=== PATIENT | male | born 1980 | race Caucasian/White ===

== ENCOUNTER 2020-12-28 15:20 | Emergency (ER) | payer OTHER, SELFPAY ==
[2020-12-28 15:34] VITALS: BP 136/90; PULSE 88; RESP 18; TEMP 36.1; O2SAT 97; BMI 21.5
[2020-12-28 17:16] LABS: MANUAL DIFF FLAG NO
[2020-12-28 17:23] LABS: Basophils Absolute Auto 0.1 X10*3/uL (0.0-0.2); Basophils Percent Auto 0.5 % (0-2); Eosinophils Percent Auto 0.4 % (0-4); Hematocrit 39.6 % (42-52); Hemoglobin 13.6 g/dl (14.0-18.0); Imm Gran Abs Auto 0.05 X10*3/uL (0.00-0.03); Imm Gran Pct Auto 0.5 % (0.0-0.4); Lymphocytes Absolute Auto 1.8 X10*3/uL (1.2-4.9); Lymphocytes Percent Auto 16.9 % (20-40); Mean Corpuscular HGB Conc 34.3 g/dl (31.0-36.0); Mean Corpuscular Hemoglobin 31.1 pg (27.0-33.0); Mean Corpuscular Volume 90.6 fL (80-98); Mean Platelet Volume 10.2 fL (9.4-12.4); Monocytes Absolute Auto 0.9 X10*3/uL (0.1-1.2); Monocytes Percent Auto 8.3 % (2-11); Neutrophils Absolute Auto 7.7 X10*3/uL (2.0-8.3); Neutrophils Percent Auto 73.4 % (45-73); Platelet Count 230 X10*3/uL (160-400); Red Blood Count 4.37 X10*6/uL (4.60-5.80); Red Cell Distribution Width 12.1 % (11.0-16.0); White Blood Count 10.5 X10*3/uL (4.8-10.8)
[2020-12-28 17:45] LABS: Anion Gap 15 (12-20); Blood Urea Nitrogen 6 mg/dL (9-16); Calcium 8.8 mg/dL (8.4-10.2); Carbon Dioxide 27 mmol/L (22-29); Chloride 103 mmol/L (96-108); Creatinine Clr Calc Pharmacy 112.7; Estimated Glomerular Filt Rate > 60; Glucose Random 90 mg/dL (60-115); Potassium 3.7 mmol/L (3.3-5.1); Sodium 141 mmol/L (135-145)
[2020-12-28] MEDS: Lidocaine HCl 2 % MPF 5 ML VIAL INFILTRATI (20:25)
[2020-12-28 21:03] VITALS: BP 128/68; PULSE 68; RESP 16; TEMP 36.6; O2SAT 98
[2020-12-28] MEDS: Ibuprofen 600 MG TABLET PO (21:03)
--- NOTE | 2020-12-28 21:23 | PC.NURSE ---
WOUND WAS DRAINED AND PACKED BY . PT INSTRUCTED TO REMOVE PACKING IN 2 DAYS, BY .
== END 2020-12-28 21:24 | disposition home or self-care (01) ==
PROVIDERS: Emergency Provider Internal Medicine
DX: L02.11 Cutaneous abscess of neck (principal); M54.2 Cervicalgia
CPT/HCPCS: 10060; 36415; 80048; 85025; 99283

== ENCOUNTER 2022-02-13 15:03 | Emergency (ER) | payer OTHER, SELFPAY ==
[2022-02-13 15:07] VITALS: BP 155/101; PULSE 98; RESP 16; TEMP 36.8; O2SAT 97; BMI 19.3
--- NOTE | 2022-02-13 15:18 | ED.SKABFB ---
HPI - Skin/Abscess/Foreign Bdy General Chief complaint: Skin/Abscess/Foreign Body Stated complaint: abscess Time Seen by Provider: 02/13/22 15:18 Source: patient Mode of arrival: ambulatory Limitations: no limitations History of Present Illness HPI narrative: Patient is a 41 year old male presenting to the emergency department today with a left facial abscess. Patient states that it has been this big for a few days and he has had a previous abscess in the same place. Patient denies any dental pain or IVDA. Patient denies any dizziness, lightheadedness, abdominal pain, nausea, vomiting, fever, chills, blurry vision, double vision, loss of vision, chest pain, difficulty breathing, shortness of breath, back pain, night sweats, pain with urination, increased urinary frequency, increased urinary urgency, blood in his urine or stool, syncope or a near syncopal episode, recent trauma or falls, bowel incontinence, bladder incontinence, bowel retention, bladder retention, or any other complaints at this time. MD complaint: abscess/boil Onset (ago): day(s) Tetanus up to date: yes Location: face Severity: mild Severity scale (1-10): 3 Quality: dull Pain Consistency: constant Relieving factors: none Exacerbating factors: none Context: none Associated symptoms: denies other symptoms Treatments prior to arrival: none Related Data Previous Rx's Medication Instructions Recorded clindamycin HCl 300 mg capsule 300 mg PO Q6H #40 cap 12/28/20 ibuprofen 600 mg tablet 600 mg PO Q6H PRN #20 tab 12/28/20 cephalexin 500 mg capsule 500 mg PO Q6H 7 Days #28 cap 02/13/22 doxycycline hyclate 150 mg tablet 150 mg PO BID 7 Days #14 tab 02/13/22 Allergies Allergy/AdvReac Type Severity Reaction Status Date / Time No Known Allergies Allergy Unverified 07/24/20 17:58 Review of Systems Constitutional: Constitutional: Reports no additional constitutional complaints, Denies chills, Denies fever(s) and Denies night sweats Eyes: Eyes: Reports no additional eye complaints, Denies blurry vision, Denies change in vision, Denies diplopia, Denies eye discharge, Denies loss of vision and Denies eye pain ENT: Denies dizziness Cardiovascular: Cardiovascular: Reports no additional cardiovascular complaints, Denies chest pain, Denies lightheadedness, Denies Loss of Consciousness and Denies dyspnea Respiratory: Respiratory: Reports no additional respiratory complaints and Denies dyspnea Gastrointestinal: Gastrointestinal: Reports no additional gastrointestinal complaints, Denies abdominal pain, Denies melena, Denies hematochezia, Denies change in bowel habits and Denies change in stool character Genitourinary: Genitourinary: Reports no additional male genitourinary complaints, Denies hematuria, Denies oliguria, Denies difficulty urinating, Denies dysuria, Denies urinary frequency, Denies urinary hesitancy, Denies urinary incontinence and Denies urinary urgency Musculoskeletal: Musculoskeletal: Reports no additional musculoskeletal complaints, Denies numbness and Denies tingling Integumentary/Breasts: Comments: abscess to the left jaw Neurologic: Denies dizziness, Denies loss of vision, Denies numbness and Denies tingling Psychiatric: Psychiatric: Reports no additional psychiatric complaints Endocrine: Endocrine: Reports no additional endocrine complaints Hematologic/Lymphatic: Hematologic/Lymphatic: Reports no additional hematologic/lymphatic complaints Allergic/Immunologic: Allergic/Immunologic: Reports no additional allergic/immunologic complaints PMFSH Past Medical History Attestation statement: The following information was validated with the patient. Source: old records reviewed Social History Social History Advance Directives: No Advance Directives Information Provided: No Physical Exam Vital Signs: Vital Signs: Last Vital Signs Temp 98.2 F 02/13/22 15:07 Pulse 98 02/13/22 15:07 Resp 16 02/13/22 15:07 BP 155/101 H 02/13/22 15:07 Pulse Ox 97 02/13/22 15:07 BMI result Body Mass Index 19.3 Const: General: cooperative, no acute distress, alert and awake Nutritional Appearance: well nourished Orientation/consciousness: patient oriented x3 Limitations: no limitations HEENT: Head: Yes normal to inspection and Yes atraumatic Ears: hearing grossly normal bilaterally and external ears normal General nose exam: Normal external nose present, no nasal discharge noted and no epistaxis Face and sinus: Yes normal facial exam, No abrasion and No laceration Mouth: Normal oral and palatal mucosa present, no drooling and no muffled voice Eyes: General: appearance normal, both eyes and all related structures Periorbital: periorbital findings normal Eyelids: Yes eyelids normal Conjunctivae: conjunctivae normal Pupils: Equal, round and reactive pupils present EOM: EOMs intact bilaterally Neck: Neck: Yes normal visual inspection, Yes full ROM and Yes no lymphadenopathy Chest: Chest palpation & inspection: normal inspection of the chest Resp: Effort & Inspection: normal respiratory effort and able to speak in complete sentences Auscultation: clear to auscultation bilaterally Cardio: Rate: regular rate Rhythm: regular rhythm GI: Inspection: Yes normal to inspection Skin: Other: left sided jaw redness and swelling consistent with an abscess Neuro: General: patient oriented x3 and moves all extremities Cranial nerves: Yes Equal, round and reactive pupils present Cognition (Neuro): normal cognition Motor exam (neuro): 5/5 motor strength present throughout Sensory Exam: Normal double simultaneous stimulation for sensation Coordination: [id number] test normal Extrem: General: Yes normal to inspection, Yes full ROM and Yes capillary refill normal Psych: Appearance: grossly normal Mental Status: mental status grossly normal Affect: normal affect Attitude: cooperative Thought process: Normal thought process present Thought content: Normal thought content present Insight: Good insight present (Psych) MDM - Skin/Abscess/Foreign Bdy MDM Narrative Medical decision making narrative: Patient is a 41 year old male presenting to the emergency department today with a left jaw abscess. Patient's physical exam showed a small erythematous and swollen area to the left side of the patient's jaw. I explained my physical exam findings to the patient. I answered all questions asked by the patient. I performed an incision and drainage on the abscessed area that resulted in blood/purulent discharge. I stressed the importance of the patient taking his medication as prescribed. I stressed the importance of the patient following up with his primary care provider. I stressed the importance of the patient returning to the emergency department immediately if his symptoms were to worsen or if he were to develop any dizziness, shortness of breath, difficulty breathing, chest pain, blurry vision, loss of vision, nausea, vomiting, abdominal pain, fever, chills, back pain, or any other complaints. Patient verbalized agreement and understanding with this treatment plan and discharge. Differential Diagnosis Differential diagnosis: Likely abscess of skin or subcutaneous tissue Medical Records Attestation: I reviewed the patient's medical records. Procedures Abscess I/D Site: face Side (if applicable): left Sedation/analgesia: none Local Anesthetic: lidocaine 1% Amount of anesthesia used (mL): 3 Technique: incised with blade Amount of fluid expressed (mL): 10 Sent for culture/gram staining?: No Irrigation: No Packing used?: none Discharge Plan Discharge Clinical Impression: Cellulitis, Abscess Patient Disposition: Home, Self-Care Instructions: Abscess (ED), Abscess Incision and Drainage (DC) Additional Instructions: Apply warm compresses to the area. Take your antibiotics as prescribed. Follow up with your primary care provider. Return to the emergency department immediately if your symptoms worsen or if you develop any dizziness, shortness of breath, difficulty breathing, chest pain, blurry vision, loss of vision, nausea, vomiting, abdominal pain, fever, chills, back pain, or any other complaints. Prescriptions: New cephalexin 500 mg capsule 500 mg PO Q6H 7 Days Qty: 28 0RF doxycycline hyclate 150 mg tablet 150 mg PO BID 7 Days Qty: 14 0RF No Action clindamycin HCl 300 mg capsule 300 mg PO Q6H Qty: 40 0RF ibuprofen 600 mg tablet 600 mg PO Q6H PRN (Reason: pain) Qty: 20 0RF Referrals: Physician,Unknown J [Primary Care Provider] - (Follow up with your PCP. ) Stand Alone Forms: Work/School Release Interventions: ED Discharge Assessment Last Done: 02/13/22 16:30 Discharge Date/Time: 02/13/22 16:32 Print Language: Azerbaijani
== END 2022-02-13 16:32 | disposition home or self-care (01) ==
PROVIDERS: Emergency Provider Emergency Medicine
DX: L02.01 Cutaneous abscess of face (principal); L03.211 Cellulitis of face
CPT/HCPCS: 10060; 99283; 99284

== ENCOUNTER 2023-10-09 20:30 | Emergency (ER) | payer OTHER, SELFPAY ==
--- NOTE | ~2023-10-09 | CT_ITS ---
EXAMINATION: CT HEAD WITHOUT CONTRAST CT CERVICAL SPINE WITHOUT CONTRAST CLINICAL INFORMATION: Fall. COMPARISON: None TECHNIQUE: Contiguous axial imaging was performed from the skull base to vertex without intravenous administration of contrast. Contiguous axial imaging was performed from the upper chest through the skull base without intravenous administration of contrast. Coronal and sagittal reformats were obtained at the acquisition workstation. This CT examination was performed using dose optimization techniques as appropriate, variously including the following: *Automated exposure control *Adjustment of mA and/or kV according to patient size (this includes techniques or standardized protocols for targeted exams where dose is matched to indication/reason for exam; i.e. extremities or head) *Use of iterative reconstruction technique DLP: 714 and 370 mGy-cm FINDINGS: Head: Right posterior high parietal subdural collection measuring up to 0.8 cm in thickness. No evidence of edematous territorial infarction. Castrejon-white matter differentiation is preserved. The ventricles are normal in size and configuration. No evidence for obstructive hydrocephalus. No abnormal mass effect or midline shift. No acute soft tissue or osseous abnormalities. The mastoid air cells and paranasal sinuses are clear. Cervical Spine: The atlantooccipital and atlantoaxial articulations remain well aligned. No evidence of acute fracture or subluxation. Mild multilevel cervical spondylosis. Disc bulging at C3-C4. There is no prevertebral soft tissue swelling. Pockets of air to the right and posterior trachea (12:300) favoring to represent tracheal diverticuli. The thyroid gland and remaining cervical soft tissues are normal in appearance. The lung apices demonstrate mild pleural-based scarring. CT/CT cervical spine wo IV con IMPRESSION: 1. Acute right posterior high parietal subdural collection measuring up to 0.8 cm in thickness. 2. No evidence of acute cervical spinal fracture or traumatic subluxation. 3. Disc bulge at C3-C4. This critical result was discussed with Raúl Castillo MD at 10/10/2023 12:44 AM and it was ascertained that the content and urgency of the report was understood at the time of direct communication.
--- NOTE | ~2023-10-09 | XR_ITS ---
EXAMINATION: XR RIBS, RIGHT CLINICAL INFORMATION: Status post fall COMPARISON: None available. TECHNIQUE: 3 views of the right ribs were obtained. FINDINGS: There are slight contour deformities of the posterolateral right ninth and 10th ribs, more suggestive of healed old fractures. No definite acute fracture is seen. Lungs are symmetrically expanded and clear. No evidence of pneumothorax, pleural effusion, or pulmonary edema. The cardiomediastinal contour is unremarkable. XR/XR ribs RT min 3V w CXR1V IMPRESSION: Slight contour deformities of the posterolateral right ninth and 10th ribs, more suggestive of healed old fractures. No definite acute fracture identified.
[2023-10-09 20:53] VITALS: BP 144/90; PULSE 71; O2SAT 98; BMI 18.3
--- NOTE | 2023-10-09 21:07 | ED.FALL ---
HPI - Fall General Chief Complaint: Fall Stated Complaint: unwit fall down stairs, etoh Time Seen by Provider: 10/09/23 21:04 Source: patient Mode of arrival: EMS Limitations: no limitations History of Present Illness HPI Narrative: Patient apparently fell while going downstairs unknown number of steps patient intoxicated and not cooperative no significant signs of injury noticed no seizures per EMS patient was able to stand up and ambulatory Related Data Previous Rx's Medication Instructions Recorded clindamycin HCl 300 mg capsule 300 mg PO Q6H #40 caps 12/28/20 ibuprofen 600 mg tablet 600 mg PO Q6H PRN pain #20 tabs 12/28/20 cephalexin 500 mg capsule 500 mg PO Q6H 7 days #28 caps 02/13/22 doxycycline hyclate 150 mg tablet 150 mg PO BID 7 days #14 tabs 02/13/22 Allergies Allergy/AdvReac Type Severity Reaction Status Date / Time No Known Allergies Allergy Unverified 07/24/20 17:58 Review of Systems Review of Systems: Yes all other systems are reviewed and are negative [facility] Past Medical History Medical History (Updated 10/10/23 @ 01:58 by Raúl Castillo MD) TBI (traumatic brain injury) Social History Social History Alcohol intake: current Alcohol intake frequency: 0-2 drinks per day Alcohol type: beer and hard liquor Smoked in Last 30 Days: Yes Use of substances other than those prescribed or required for medical reasons: Refusing to respond Advance Directives: No Advance Directives Information Provided: No Physical Exam Vital Signs: Vital Signs: Last Vital Signs Temp 98.8 F 10/09/23 22:04 Pulse 61 10/09/23 22:04 Resp 16 10/09/23 22:04 Pulse Ox 96 10/09/23 22:04 O2 Del Method Room Air 10/09/23 22:04 BMI result Body Mass Index 18.3 Appearance: Sleeping in the ER No acute distress. Intoxicated Eyes: PERRLA, No Nystagmus HEENT: Pharynx normal. Oral Mucosa moist atraumatic normocephalic tympanic membrane Normal Neck: Normal inspection. Neck supple. No midline tenderness CVS: Normal heart rate and rhythm. Pulses normal. Respiratory: No respiratory distress. Equal air entry bilateral, no wheezing/rales/rhonchi tenderness right upper ribs and mid axillary area Abdomen: Soft and nontender. Bowel sounds are present, no mass palpable, no CVA tenderness Skin: Skin warm and dry. Normal skin color. Normal skin turgor. Extremities: No lower extremity edema. No calf tenderness Neuro: Sleeping but easily arousable No motor deficit. No sensory deficit.No cerebellar signs , cranial nerves II-XII intact Medications Administered Discontinued Medications Generic Name Dose Route Start Last Admin Trade Name Alexandre PRN Reason Stop Dose Admin Morphine Sulfate 4 mg 10/10/23 01:02 10/10/23 01:47 Morphine Sulfate 4 Mg/Ml Cartridge IVPUSH 10/10/23 01:03 4 mg ONCE ONE Administration Protocol Ondansetron HCl 4 mg 10/10/23 01:02 10/10/23 01:46 Ondansetron Hcl 4 Mg/2 Ml Vial IVPUSH 10/10/23 01:03 4 mg ONCE ONE Administration Medical Decision Making Medical Decision Making [facility] Narrative: Patient's sister came to the ER and told us that patient apparently fell about 10 steps intoxicated friend saw him falling and patient hit his right side of the head on the ground very hard no loss of consciousness although patient complaining of pain in the right ribs no seizure activity no shortness of breath patient not on any anticoagulation not on aspirin, patient GCS 15 ambulatory in the ED will call [facility] for transfer 150: CDW with Dr. Coats at [facility] Trauma Surgeon accept the patient for transfer to the ED Differential Diagnosis Differential Diagnoses: The differential diagnosis associated with the presentation includes SDH/ICH/rib fracture Admission/Observation Consideration of admission/observation: Escalation of care including admission/observation considered Lab Data [facility] Lab Attestation statement: I reviewed the patient's lab results. 10/10/23 01:16 10/10/23 01:16 Labs: Lab Results 10/10/23 Range/Units 01:16 WBC 9.3 (4.8-10.8) X10*3/uL RBC 4.95 (4.60-5.80) X10*6/uL Hgb 14.9 (14.0-18.0) g/dl Hct 44.9 (42.0-52.0) % MCV 90.7 (80.0-98.0) fL MCH 30.1 (27.0-33.0) pg MCHC 33.2 (31.0-36.0) g/dl RDW 12.2 (11.0-16.0) % Plt Count 198 (160-400) X10*3/uL MPV 10.2 (9.4-12.4) fL Immature Gran % (Auto) 0.2 (0.0-0.4) % Neut % (Auto) 63.1 (45-73) % Lymph % (Auto) 26.9 (20-40) % O'Brien % (Auto) 7.9 (2-11) % Eos % (Auto) 1.4 (0-4) % Baso % (Auto) 0.5 (0-2) % Lymph # (Auto) 2.5 (1.2-4.9) X10*3/uL O'Brien # (Auto) 0.7 (0.1-1.2) X10*3/uL Eos # (Auto) 0.1 (0.0-0.4) X10*3/uL Baso # (Auto) 0.1 (0.0-0.2) X10*3/uL Abs Immat Gran (auto) 0.02 (0.00-0.03) X10*3/uL Absolute Neuts (auto) 5.9 (2.0-8.3) x10*3/uL Absolute Nucleated RBC 0.000 (0.0-0.012) X10*3/uL Nucleated RBC % (auto) 0.0 (0.0-0.2) /100WBC PT 11.4 (11.1-13.3) SEC INR 0.9 (0.9-1.1) APTT 28.4 (26.0-36.4) SEC Sodium 145 (135-145) mmol/L Potassium 4.0 (3.3-5.1) mmol/L Chloride 108 (96-108) mmol/L Carbon Dioxide 27 (22-29) mmol/L Anion Gap 14 (12-20) BUN 10 (9-16) mg/dL Creatinine 0.90 (0.5-1.4) mg/dL Estim Creat Clear Calc 90.7 Estimated GFR > 60 Random Glucose 98 (60-115) mg/dL Calcium 9.0 (8.4-10.2) mg/dL Magnesium 2.1 (1.6-2.6) mg/dL Total Bilirubin 0.4 (0.0-1.0) mg/dL AST 69 H (5-37) U/L ALT 39 (0-40) U/L Alkaline Phosphatase 69 (39-117) U/L Total Protein 8.3 H (6.5-8.0) g/dL Albumin 4.6 (3.5-5.0) g/dL Ethyl Alcohol 230 mg/dL Independent Interpretation I performed an independent interpretation of an: Plain X-Ray and CT Scan Interpretation: Negative for rib fracture Radiology Impression Discussion of test interpretation with radiology: I have reviewed the radiologist's reading. Radiologist Impression: [address] [address] [address] Scan Report Signed Patient: Cristino Reyes MR#: [id number] : 1980 Acct:[id number] Age/Sex: 43 / M ADM Date: 10/09/23 Loc: .ED Attending Dr: Ordering Physician: Raúl Castillo MD Date of Service: 10/09/23 Procedure(s): CT head/brain wo IV con Accession Number(s): [id number] cc: Physician,Unknown ; Raúl Castillo MD~ EXAMINATION: CT HEAD WITHOUT CONTRAST CT CERVICAL SPINE WITHOUT CONTRAST CLINICAL INFORMATION: Fall. COMPARISON: None TECHNIQUE: Contiguous axial imaging was performed from the skull base to vertex without intravenous administration of contrast. Contiguous axial imaging was performed from the upper chest through the skull base without intravenous administration of contrast. Coronal and sagittal reformats were obtained at the acquisition workstation. This CT examination was performed using dose optimization techniques as appropriate, variously including the following: *Automated exposure control *Adjustment of mA and/or kV according to patient size (this includes techniques or standardized protocols for targeted exams where dose is matched to indication/reason for exam; i.e. extremities or head) *Use of iterative reconstruction technique DLP: 714 and 370 mGy-cm FINDINGS: Head: Right posterior high parietal subdural collection measuring up to 0.8 cm in thickness. No evidence of edematous territorial infarction. Castrejon-white matter differentiation is preserved. The ventricles are normal in size and configuration. No evidence for obstructive hydrocephalus. No abnormal mass effect or midline shift. No acute soft tissue or osseous abnormalities. The mastoid air cells and paranasal sinuses are clear. Cervical Spine: The atlantooccipital and atlantoaxial articulations remain well aligned. No evidence of acute fracture or subluxation. Mild multilevel cervical spondylosis. Disc bulging at C3-C4. There is no prevertebral soft tissue swelling. Pockets of air to the right and posterior trachea (12:300) favoring to represent tracheal diverticuli. The thyroid gland and remaining cervical soft tissues are normal in appearance. The lung apices demonstrate mild pleural-based scarring. CT/CT head/brain wo IV con IMPRESSION: 1. Acute right posterior high parietal subdural collection measuring up to 0.8 cm in thickness. 2. No evidence of acute cervical spinal fracture or traumatic subluxation. 3. Disc bulge at C3-C4. [address] [address] XRay Report Signed Patient: Cristino Reyes MR#: [id number] : 1980 Acct:[id number] Age/Sex: 43 / M ADM Date: 10/09/23 Loc: HO.ED Attending Dr: Ordering Physician: Raúl Castillo MD Date of Service: 10/10/23 Procedure(s): XR ribs RT min 3V w CXR1V Accession Number(s): [id number] cc: Physician,Unknown ; Raúl Castillo MD~ EXAMINATION: XR RIBS, RIGHT CLINICAL INFORMATION: Status post fall COMPARISON: None available. TECHNIQUE: 3 views of the right ribs were obtained. FINDINGS: There are slight contour deformities of the posterolateral right ninth and 10th ribs, more suggestive of healed old fractures. No definite acute fracture is seen. Lungs are symmetrically expanded and clear. No evidence of pneumothorax, pleural effusion, or pulmonary edema. The cardiomediastinal contour is unremarkable. XR/XR ribs RT min 3V w CXR1V IMPRESSION: Slight contour deformities of the posterolateral right ninth and 10th ribs, more suggestive of healed old fractures. No definite acute fracture identified. Critical Care Time Critical Care Time Critical Care Time: Yes Total Critical Care Time: 55 Attestation: The patient was critically ill with a high probability of imminent or life threatening deterioration. I spent greater than 60 minutes of discontinuous time evaluating the patient,delivering critical care at the bedside, discussing and evaluating pertinent data with consultants. Critical care time does not include time spent performing separately billable procedures or teaching. Total time spent performing critical care was 55 minutes. Discharge Plan Discharge Clinical Impression: Acute subdural hematoma, Fall (on) (from) other stairs and steps, initial encounter, Alcohol intoxication Patient Disposition: [facility] Transfer Details: Be [facility] ER as a trauma transfer Dr Coats Prescriptions: No Action clindamycin HCl 300 mg capsule 300 mg PO Q6H Qty: 40 0RF ibuprofen 600 mg tablet 600 mg PO Q6H PRN (Reason: pain) Qty: 20 0RF cephalexin 500 mg capsule 500 mg PO Q6H 7 Days Qty: 28 0RF doxycycline hyclate 150 mg tablet 150 mg PO BID 7 Days Qty: 14 0RF
[2023-10-09 21:46] VITALS: RESP 16
[2023-10-09 22:04] VITALS: PULSE 61; RESP 16; TEMP 37.1; O2SAT 96
--- NOTE | 2023-10-09 22:06 | PC.NURSE ---
patient refusing BP but willing to keep pulse ox on finger. Pt now sleeping, respirations even and unlabored, skin pwd. awaiting CT scan
--- NOTE | 2023-10-09 22:30 | PC.NURSE ---
sister called to inform this RN that patient has multiple head injuries in the past and has a long standing hx of ETOH abuse
--- NOTE | 2023-10-10 | PC.NURSE ---
On pt reassessment, pt demonstrating steady gait, ambulated to bathroom without distress. On return, pt endorsing R rib pain on R lateral side, CXR ordered. LSCTA, able to carry conversation, calm and cooperative with staff.
[2023-10-10 01:21] LABS: MANUAL DIFF FLAG NO
[2023-10-10 01:24] LABS: Basophils Absolute Auto 0.1 X10*3/uL (0.0-0.2); Basophils Percent Auto 0.5 % (0-2); Eosinophils Absolute Auto 0.1 X10*3/uL (0.0-0.4); Eosinophils Percent Auto 1.4 % (0-4); Hematocrit 44.9 % (42.0-52.0); Hemoglobin 14.9 g/dl (14.0-18.0); Imm Gran Abs Auto 0.02 X10*3/uL (0.00-0.03); Imm Gran Pct Auto 0.2 % (0.0-0.4); Lymphocytes Absolute Auto 2.5 X10*3/uL (1.2-4.9); Lymphocytes Percent Auto 26.9 % (20-40); Mean Corpuscular HGB Conc 33.2 g/dl (31.0-36.0); Mean Corpuscular Hemoglobin 30.1 pg (27.0-33.0); Mean Corpuscular Volume 90.7 fL (80.0-98.0); Mean Platelet Volume 10.2 fL (9.4-12.4); Monocytes Absolute Auto 0.7 X10*3/uL (0.1-1.2); Monocytes Percent Auto 7.9 % (2-11); Neutrophils Absolute Auto 5.9 x10*3/uL (2.0-8.3); Neutrophils Percent Auto 63.1 % (45-73); Platelet Count 198 X10*3/uL (160-400); Red Blood Count 4.95 X10*6/uL (4.60-5.80); Red Cell Distribution Width 12.2 % (11.0-16.0); White Blood Count 9.3 X10*3/uL (4.8-10.8)
[2023-10-10 01:27] LABS: INTERNATIONAL NORM RATIO 0.9 (0.9-1.1); Prothrombin Time 11.4 SEC (11.1-13.3)
[2023-10-10 01:30] LABS: Partial Thromboplastin Time 28.4 SEC (26.0-36.4)
[2023-10-10 01:38] LABS: Alanine Aminotransferase 39 U/L (0-40); Albumin Level 4.6 g/dL (3.5-5.0); Alkaline Phosphatase 69 U/L (39-117); Anion Gap 14 (12-20); Aspartate Amino Transferase 69 U/L (5-37); Bilirubin Total 0.4 mg/dL (0.0-1.0); Blood Urea Nitrogen 10 mg/dL (9-16); Carbon Dioxide 27 mmol/L (22-29); Chloride 108 mmol/L (96-108); Creatinine Clr Calc Pharmacy 90.7; Estimated Glomerular Filt Rate > 60; Ethanol 230 mg/dL; Glucose Random 98 mg/dL (60-115); Magnesium 2.1 mg/dL (1.6-2.6); Sodium 145 mmol/L (135-145); Total Protein 8.3 g/dL (6.5-8.0)
[2023-10-10] MEDS: ondansetron HCL 4 MG/2 ML VIAL IVPUSH (01:46)
[2023-10-10] MEDS: Morphine Sulfate 4 MG/ML CARTRIDGE IVPUSH (01:47)
[2023-10-10 02:24] VITALS: BP 101/65; PULSE 65; RESP 16; O2SAT 97
--- NOTE | 2023-10-10 02:50 | MHC.EDTECH ---
CALL OUT TO [facility] AT 0203 TO BOOK TRANSPORT FOR PT TO [facility] ED, ESTIMATED ETA GIVEN WAS [id number]
== END 2023-10-10 02:48 | disposition short-term general hospital (02) ==
PROVIDERS: Emergency Provider Internal Medicine
DX: S06.5XAA Traumatic subdural hemorrhage with loss of consciousness status unknown, initial encounter (principal); W10.9XXA Fall (on) (from) unspecified stairs and steps, initial encounter; Y93.9 Activity, unspecified; Y92.9 Unspecified place or not applicable; Y99.9 Unspecified external cause status; F10.129 Alcohol abuse with intoxication, unspecified; R07.81 Pleurodynia; Y90.7 Blood alcohol level of 200-239 mg/100 ml
CPT/HCPCS: 36415; 70450; 71101; 72125; 80053; 80307; 83735; 85025; 85610; 85730; 96374; 96375; 99285; J2270; J2405

== ENCOUNTER 2024-04-02 22:03 | Emergency (ER) | payer BC, SELFPAY ==
[2024-04-02 22:22] VITALS: BP 116/89; PULSE 82; RESP 17; TEMP 36.5; O2SAT 97; BMI 20.7
[2024-04-02 22:44] LABS: MANUAL DIFF FLAG NO
[2024-04-02 22:59] LABS: Acetaminophen LAB < 3 mcg/mL (<30); Alanine Aminotransferase 24 U/L (0-40); Albumin Level 4.6 g/dL (3.5-5.0); Alkaline Phosphatase 120 U/L (39-117); Anion Gap 16 (12-20); Aspartate Amino Transferase 49 U/L (5-37); Bilirubin Total 0.4 mg/dL (0.0-1.0); Blood Urea Nitrogen 7 mg/dL (9-16); Calcium 8.9 mg/dL (8.4-10.2); Carbon Dioxide 26 mmol/L (22-29); Chloride 103 mmol/L (96-108); Creatinine Clr Calc Pharmacy 101.5; Estimated Glomerular Filt Rate > 60; Ethanol 326 mg/dL; Glucose Random 116 mg/dL (60-115); Potassium 3.4 mmol/L (3.3-5.1); Salicylate < 5.0 mg/dL (15-30); Sodium 142 mmol/L (135-145); Total Protein 8.4 g/dL (6.5-8.0)
[2024-04-02 23:00] LABS: Basophils Absolute Auto 0.1 X10*3/uL (0.0-0.2); Basophils Percent Auto 0.6 % (0-2); Eosinophils Absolute Auto 0.1 X10*3/uL (0.0-0.4); Eosinophils Percent Auto 0.7 % (0-4); Hematocrit 43.5 % (42.0-52.0); Hemoglobin 14.5 g/dl (14.0-18.0); Imm Gran Abs Auto 0.04 X10*3/uL (0.00-0.03); Imm Gran Pct Auto 0.4 % (0.0-0.4); Lymphocytes Absolute Auto 1.7 X10*3/uL (1.2-4.9); Lymphocytes Percent Auto 16.7 % (20-40); Mean Corpuscular HGB Conc 33.3 g/dl (31.0-36.0); Mean Corpuscular Hemoglobin 30.5 pg (27.0-33.0); Mean Corpuscular Volume 91.4 fL (80.0-98.0); Monocytes Absolute Auto 1.2 X10*3/uL (0.1-1.2); Monocytes Percent Auto 11.5 % (2-11); Neutrophils Absolute Auto 7.1 x10*3/uL (2.0-8.3); Neutrophils Percent Auto 70.1 % (45-73); Platelet Count 240 X10*3/uL (160-400); Red Blood Count 4.76 X10*6/uL (4.60-5.80); Red Cell Distribution Width 12.9 % (11.0-16.0); White Blood Count 10.2 X10*3/uL (4.8-10.8)
[2024-04-02 23:27] LABS: Appearance Urine Clear; Color Urine Yellow; Glucose Urine UA Negative (Negative); Leukocyte Esterase Urine Negative (Negative); Nitrite Urine Negative (Negative); Specific Gravity - Urine <= 1.005 (1.005-1.025); UMIC TRIGGER UA YES; Urine Blood Trace (Negative); Urine Ketones Negative (Negative); Urine Protein Trace mg/dL (Neg-Trace)
[2024-04-02 23:30] LABS: Bacteria Urine None Seen (None Seen); RBC Urine 0-2 /HPF (0-2); Squamous Epithelial Cell Urine 0-2 /HPF (0-2); WBC Urine 0-5 /HPF (0-5)
[2024-04-02 23:41] LABS: Amphetamine Screen Urine Not Detected (Not Detect); Barbiturates, Urine Not Detected (Not Detect); Benzodiazepines Screen Urine Not Detected (Not Detect); Buprenorphine Scr Not Detected (Not Detect); Cannabinoid Screen Urine POSITIVE (Not Detect); Cocaine Screen Urine Not Detected (Not Detect); Fentanyl, urine Not Detected (Not Detect); Methadone Screen, Urine Not Detected (Not Detect); Opiate Screen Urine Not Detected (Not Detect); Oxycodone Screen Urine Not Detected (Not Detect); Phencyclidine Screen Urine Not Detected (Not Detect)
--- NOTE | 2024-04-02 23:50 | ED_ITS ---
HPI - General Adult General Chief complaint: Psychiatric Symptoms Stated complaint: peronal Time Seen by Provider: 04/02/24 23:50 History of Present Illness HPI narrative: The patient is a 43-year-old male who has been living with his sister in [place] recently. Apparently the patient's sister kicked the patient out of her house today and told him that he needed to get help with his alcohol use. The patient therefore came to the hospital. The patient says that he recently was in contact with the [facility] ([facility]) and has an appointment scheduled with a counselor in the near future. 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 He says that he has been having a stressful life recently because he has to walk from [place] the [place] the catch a bus to get the [place] to go to work. This takes a lot of time. He also has 2 daughters and he is under stress because he does not see them very much. The patient is hoping he can get help with his alcohol use problems and the stress in his life. He denies suicidality. No fever sweats or chills. Related Data Previous Rx's ?Medication ?Instructions ?Recorded clindamycin HCl 300 mg capsule 300 mg PO Q6H #40 caps 12/28/20 ibuprofen 600 mg tablet 600 mg PO Q6H PRN pain #20 tabs 12/28/20 cephalexin 500 mg capsule 500 mg PO Q6H 7 days #28 caps 02/13/22 doxycycline hyclate 150 mg tablet 150 mg PO BID 7 days #14 tabs 02/13/22 Allergies Allergy/AdvReac Type Severity Reaction Status Date / Time mite-Dermatophagoides Allergy Runny Nose Verified 04/02/24 22:31 sandra rondon [dust mite - [place]] Review of Systems 2 Review of Systems: Yes all other systems are reviewed and are negative [facility] Past Medical History Medical History (Updated 04/03/24 @ 06:54 by Barrington Corrales MD) TBI (traumatic brain injury) Social History Social History Alcohol intake: current Alcohol intake frequency: 0-2 drinks per day Alcohol type: beer and hard liquor Advance Directives: No Advance Directives Information Provided: No Do you have a plan to hurt others: No Plan Physical Exam ED Vital Signs: Vital Signs - 24 hr 04/02/24 22:22 04/03/24 05:35 Temperature 97.7 F 97.8 F Pulse Rate 82 70 Respiratory Rate 17 18 Blood Pressure 116/89 105/56 L Pulse Oximetry 97 97 Oxygen Delivery Method Room Air Room Air BMI result Body Mass Index 20.7 Const Other: The patient is a disheveled 43-year-old male who was awake and alert. He seems mildly intoxicated but not unpleasantly so. He does not seem in distress. HENMT Other: No facial asymmetry. Mucous membranes moist. The patient has poor dentition. Eyes Other: Pupils are round equal, conjunctivae are clear, extraocular movements intact. Neck Other: Moving his neck easily Resp Effort & Inspection: normal respiratory effort Auscultation: clear to auscultation bilaterally Cardio Rate: regular rate Rhythm: regular rhythm Heart sounds: S1 normal heart sound present and S2 normal heart sound present GI Other: Abdomen is soft and nontender Skin Other: Skin is dry and unremarkable Neuro Other: The patient is awake and alert. He seems intoxicated but not obtunded. Face is symmetrical. Speech is not grossly slurred. He moves his extremities symmetrically. No focal deficits. Extrem Other: The patient has an unusual deformity to the medial aspect of the right lower leg. He says that he had a significant fracture to the leg about 10 years ago and has a metal plate. He says the deformity is chronic. There is no calf swelling or tenderness. No ankle edema. Psych Other: The patient is awake and alert and pleasant and cooperative. He seems intoxicated. He denies suicidality. Medical Decision Making Medical Decision Making MDM Narrative: The patient is a 43-year-old male with a history of alcohol use disorder who also has a lot of social stressors. He was kicked out of his sister's house today. He is feeling quite despondent. The patient is medically clear for evaluation by the care team. The patient has been kept in the emergency room to be seen by the care team in the morning. The patient will be signed out to the oncoming emergency physician at change of shift pending recommendations from the recovery team. Lab Data 04/02/24 22:40 04/02/24 22:40 Labs: Lab Results 04/02/24 04/02/24 Range/Units 22:40 23:21 WBC 10.2 (4.8-10.8) X10*3/uL RBC 4.76 (4.60-5.80) X10*6/uL Hgb 14.5 (14.0-18.0) g/dl Hct 43.5 (42.0-52.0) % MCV 91.4 (80.0-98.0) fL MCH 30.5 (27.0-33.0) pg MCHC 33.3 (31.0-36.0) g/dl RDW 12.9 (11.0-16.0) % Plt Count 240 (160-400) X10*3/uL MPV 10.0 (9.4-12.4) fL Immature Gran % (Auto) 0.4 (0.0-0.4) % Neut % (Auto) 70.1 (45-73) % Lymph % (Auto) 16.7 L (20-40) % Worth % (Auto) 11.5 H (2-11) % Eos % (Auto) 0.7 (0-4) % Baso % (Auto) 0.6 (0-2) % Lymph # (Auto) 1.7 (1.2-4.9) X10*3/uL Worth # (Auto) 1.2 (0.1-1.2) X10*3/uL Eos # (Auto) 0.1 (0.0-0.4) X10*3/uL Baso # (Auto) 0.1 (0.0-0.2) X10*3/uL Abs Immat Gran (auto) 0.04 H (0.00-0.03) X10*3/uL Absolute Neuts (auto) 7.1 (2.0-8.3) x10*3/uL Absolute Nucleated RBC 0.000 (0.0-0.012) X10*3/uL Nucleated RBC % (auto) 0.0 (0.0-0.2) /100WBC Sodium 142 (135-145) mmol/L Potassium 3.4 (3.3-5.1) mmol/L Chloride 103 (96-108) mmol/L Carbon Dioxide 26 (22-29) mmol/L Anion Gap 16 (12-20) BUN 7 L (9-16) mg/dL Creatinine 0.86 (0.5-1.4) mg/dL Estim Creat Clear Calc 101.5 Estimated GFR > 60 Random Glucose 116 H (60-115) mg/dL Calcium 8.9 (8.4-10.2) mg/dL Total Bilirubin 0.4 (0.0-1.0) mg/dL AST 49 H (5-37) U/L ALT 24 (0-40) U/L Alkaline Phosphatase 120 H (39-117) U/L Total Protein 8.4 H (6.5-8.0) g/dL Albumin 4.6 (3.5-5.0) g/dL Urine Color Yellow Urine Appearance Clear Urine pH 6.0 (5.0-9.0) Ur Specific [place] <= 1.005 (1.005-1.025) Urine Protein Trace (Neg-Trace) mg/dL Urine Glucose (UA) Negative (Negative) mg/dL Urine Ketones Negative (Negative) mg/dL Urine Blood Trace H (Negative) Urine Nitrite Negative (Negative) Ur Leukocyte Esterase Negative (Negative) Urine RBC 0-2 (0-2) /HPF Urine WBC 0-5 (0-5) /HPF Ur Squamous Epith Cells 0-2 (0-2) /HPF Urine Bacteria None Seen (None Seen) Hyaline Casts 3-5 (0-2) /LPF Salicylates < 5.0 L (15-30) mg/dL Urine Opiates Screen Not Detected (Not Detect) Ur Buprenorphine Scrn Not Detected (Not Detect) ng/mL Ur Oxycodone Screen Not Detected (Not Detect) ng/mL Urine Methadone Screen Not Detected (Not Detect) ng/mL Urine Fentanyl Screen Not Detected (Not Detect) Acetaminophen < 3 (<30) mcg/mL Ur Barbiturates Screen Not Detected (Not Detect) Ur Phencyclidine Scrn Not Detected (Not Detect) Ur Amphetamines Screen Not Detected (Not Detect) U Benzodiazepines Scrn Not Detected (Not Detect) Urine Cocaine Screen Not Detected (Not Detect) U Marijuana (THC) Screen POSITIVE H (Not Detect) Ethyl Alcohol 326 H* mg/dL Discharge Plan Discharge Clinical Impression: Alcohol use disorder, Despondency Patient Disposition: Still a Patient Prescriptions: No Action clindamycin HCl 300 mg capsule 300 mg PO Q6H Qty: 40 0RF ibuprofen 600 mg tablet 600 mg PO Q6H PRN (Reason: pain) Qty: 20 0RF cephalexin 500 mg capsule 500 mg PO Q6H 7 Days Qty: 28 0RF doxycycline hyclate 150 mg tablet 150 mg PO BID 7 Days Qty: 14 0RF Interventions: Gillespie-Suicide Risk Severity Scale Last Done: 04/03/24 01:06 Print Language: Armenian
[2024-04-03 05:35] VITALS: BP 105/56; PULSE 70; RESP 18; TEMP 36.6; O2SAT 97
[2024-04-03 10:12] VITALS: BP 116/85; PULSE 71; RESP 14; TEMP 36.8; O2SAT 97
--- NOTE | 2024-04-03 11:23 | MHC.CARE ---
Patient seen by CARE team, he denies SI at the time of assessment and is requesting detox. T/w messaged Recovery team regarding his request.
--- NOTE | 2024-04-03 11:57 | PM.EVENT ---
Event Note Date of Service: 04/03/24 Event Note: Addiction consult placed for patient seeking admission to [facility] for alcohol use Initially seen and cleared by CARE team. Seen in 6H. Awake, alert Reports that his sister asked him to leave her apt and het help with his drinking Reports drinking 3 natty daddies daily and occasionally 3-5 nips of fireball as well. Denies any other substance use Reports one previous admission to [facility] a year ago. Plan: -completed intake with [facility] and accepted for admission -he will discharge home to pack clothes and [facility] will then pick him up there and transport to treatment facility -RN made aware Time Spent With Patient Time: Total time managing care of this patient today ____ minutes.
[2024-04-03 12:01] VITALS: BP 132/94; PULSE 69; RESP 14; TEMP 36.9; O2SAT 97
[2024-04-03 12:42] VITALS: BP 132/94; PULSE 69; RESP 14; TEMP 36.9; O2SAT 97
--- NOTE | 2024-04-03 12:45 | PC.NURSE ---
PT CLEARED FOR DISCHARGE, INTAKE DONE WITH [facility]. [facility] TO [facility] [facility] AT HOME. PT AWARE OF PLAN.
== END 2024-04-03 12:42 | disposition home or self-care (01) ==
PROVIDERS: Emergency Provider Emergency Medicine
DX: F10.90 Alcohol use, unspecified, uncomplicated (principal); Y90.8 Blood alcohol level of 240 mg/100 ml or more; F32.A Depression, unspecified
CPT/HCPCS: 36415; 80053; 80143; 80179; 80307; 81001; 85025; 99284; 99285; S9485